=== PATIENT | female | born 1945 | race Caucasian/White ===

== ENCOUNTER → 2017-03-19 | Outpatient (CLI) | payer MEDICARE, OTHER ==
[~2017-03-19] MED LIST: AMLO5TAB2 PO; ASCO500C14 PO; ASP81TEC PO; CLD600T GT; DRON400T2 PO; EST.625T PO; ESTR0.5T PO; FURO20TA4 PO; GLUC100016 PO; GLUC500C2 PO; METO25TA2 PO; OMEG-82 PO; OMEP20TA2 PO; OMEP20TA7 PO; PNT40TEC PO; SOLI5TAB4 PO; VITA150T PO; [UNRECOGNIZED DRUG - CODE] PO
== END ==
LOC: RAD 10:50
PROVIDERS: ATTEND Family Medicine
DX: Z12.31 Encounter for screening mammogram for malignant neoplasm of breast (principal)
CPT/HCPCS: 77067

== ENCOUNTER → 2017-04-22 | Outpatient (CLI) | payer MEDICARE, OTHER ==
--- NOTE | 2017-04-22 16:01 | Diagnostic Imaging Report ---
EXAMINATION: Left breast ultrasound. INDICATION: Cluster of calcifications seen in the left breast central posterior aspect. FINDINGS: At the 1 o'clock zone 7 cm from the nipple, there is an area of slight heterogeneity within the parenchyma and with associated nonspecific shadowing. It appears to be elongated on the antiradial imaging plane and on the radial imaging plane it is thinner. The area involved measures 2.2 x 0.5 x 0.8 cm. No internal vascularity is evident. No definitive borders or mass is identified. The four-quadrants and retroareolar region of the left breast were scanned with no definite abnormality seen otherwise. IMPRESSION: 1. At the 1 o'clock zone 7 cm from the nipple, there is a poorly defined heterogenous area of the parenchyma measuring 2.2 cm in size with indeterminate features. Further evaluation with an MRI of the breast is recommended. 2. Indeterminate cluster of calcifications, new from the prior exam, is seen on mammography with pleomorphism. A stereotactic biopsy is recommended. MRI is better performed before the biopsy, however. The patient was informed of the findings and recommendations. ACR BI-RADS Category 4B: Intermediate suspicion of malignancy. Report was faxed to the office of EDISON Maciel at 3:54 p.m., by souleymane (for [employer]). Dictated by: Dictated on workstation # [id number]
--- NOTE | 2017-04-22 19:42 | Diagnostic Imaging Report ---
Left breast diagnostic mammogram with tomography. The current study was also evaluated with a Computer Aided Detection (CAD) system. INDICATION: Calcification seen in the central aspect of the left breast developing from the previous exam of 2013. FINDINGS: Group of calcifications is heterogenous with some coarse and few microcalcifications are seen. Etiology is indeterminate. They are located in the posterior depth in the central aspect of the left breast. IMPRESSION: Heterogenous cluster of calcifications in the central posterior aspect of the left breast, associated with a low suspicion of malignancy. Ultrasound evaluation is pending. ACR BI-RADS Category 0: Incomplete. (Needs additional imaging evaluation). Result letter will be mailed to the patient. Note: At least 10% of breast cancer is not imaged by mammography. Dictated by: Dictated on workstation # [id number]
== END ==
LOC: RAD 12:44
PROVIDERS: ATTEND Nurse Practitioner Family
DX: R92.8 Other abnormal and inconclusive findings on diagnostic imaging of breast (principal)
CPT/HCPCS: 76641

== ENCOUNTER → 2017-08-15 | Outpatient (CLI) | payer MEDICARE, OTHER | LOC: RAD 10:05 | PROVIDERS: ATTEND Nurse Practitioner Family | DX: M25.562 Pain in left knee (principal) ==

== ENCOUNTER → 2017-09-10 | Outpatient (CLI) | payer MEDICARE, OTHER ==
--- NOTE | 2017-09-10 15:46 | Diagnostic Imaging Report ---
PROCEDURE: CT left lower extremity without contrast. TECHNIQUE: Multiple contiguous axial images were obtained through the left lower extremity without the use of intravenous contrast. Sagittal and coronal reformations were then performed. INDICATION: Left knee pain. FINDINGS: There is no acute fracture or dislocation. There are prominent calcifications seen within the medial and lateral menisci and in the cruciate ligaments. There is also ossification or calcification seen along the posterior aspect of the quadriceps tendon insertion site. This is possibly related to a prior injury or pseudogout. There is joint space narrowing suggestive of cartilage thinning in the medial compartment of moderate degree and tricompartment osteophyte formation. There is a ptsbr-ke-gzhqxzue suprapatellar effusion. There is no significant Sneed's cyst seen. There is no suspicious osseous mass. IMPRESSION: Degenerative changes most prominent in the medial compartment are seen. There is significant calcification and ossification of the menisci and ligaments around the knee which could relate to old injury or pseudogout. Correlate clinically. Dictated by: Dictated on workstation # [id number]
== END ==
LOC: RAD 12:48
PROVIDERS: ATTEND Family Medicine
DX: M17.12 Unilateral primary osteoarthritis, left knee (principal)
CPT/HCPCS: 73700

== ENCOUNTER → 2018-05-25 | Outpatient (CLI) | payer MEDICARE, OTHER ==
--- NOTE | 2018-05-25 17:19 | Diagnostic Imaging Report ---
INDICATION: Low back pain. TIME OF EXAM: 12:43 p.m. FINDINGS: Slight right convexity lumbar scoliotic curvature is noted. There is normal lordotic curvature. There may be very slight anterolisthesis of L3 on L4. Vertebral body heights are maintained. No acute compression fracture is seen. Generalized degenerative disc disease is seen with variable disc space narrowing. Marginal osteophyte formation is present. This is most marked at L5-S1 where there is also vacuum disc phenomena. There appears to be very slight retrolisthesis of L5 on S1. Generalized facet arthropathy is noted. IMPRESSION: Lumbar spondylosis. No acute bony abnormality is detected. Dictated by: Dictated on workstation # [id number]
== END ==
LOC: RAD 11:55
PROVIDERS: ATTEND Nurse Practitioner Family
DX: M47.816 Spondylosis without myelopathy or radiculopathy, lumbar region (principal)
CPT/HCPCS: 72100

== ENCOUNTER 2018-09-10 10:29 | Emergency (ER) | payer MEDICARE, OTHER ==
[~2018-09-10] VITALS: Ht 157.5 cm; Wt 100.7 kg
--- NOTE | 2018-09-10 11:36 | ED GI ---
General Chief Complaint: Abdominal/GI Problems Stated Complaint: CONSTIPATION Nursing Triage Note: pt presents to er with complaint of constipation for over a week. pt states she has been taking stool softeners, laxatives, and a fleet enema with no results. pt states she is having bright red blood on toilet paper after straining. Sepsis Screen: No Definite Risk Source of Information: Patient Exam Limitations: No Limitations History of Present Illness Date Seen by Provider: Sep 10, 2018 Time Seen by Provider: 11:34 Initial Comments To ER with reports of constipation and no bowel movement for 8 days. She's tried wixd-ysa-mjppznj stool softeners, laxatives 3 in fleets enema with no results. She does have some bloody-appearing material on the toilet paper after straining. She has a history of diverticulitis. She called her primary care provider yesterday who called in an antibiotic. She's had 1 dose of oral antibiotic. No fevers or chills. She does have quite a bit of rectal pain. Severity/Quality: Moderate Location: Generalized Abdomen Radiation: No Radiation Associated Symptoms: No Fever/Chills; Nausea/Vomiting (nausea but no vomiting) Allergies and Home Medications Allergies Coded Allergies: Penicillins (Verified Allergy, Unknown, 07/17/15) Sulfa (Sulfonamide Antibiotics) (Verified Allergy, Unknown, 07/17/15) Home Medications Ascorbic Acid 500 Mg Capsule.sa, 500 MG PO DAILY, (Reported) Aspirin 81 Mg Tabec, 81 MG PO DAILY, (Reported) Calcium/Vitamin D 600 Mg Tab, 600 MG GT DAILY, (Reported) Estradiol 0.5 Mg Tablet, 0.5 MG PO DAILY, (Reported) Furosemide 20 Mg Tablet, 1 EACH PO PRN, (Reported) Glucosamine Sulfate 500 Mg Capsule, 500 MG PO DAILY, (Reported) Glucosamine Sulfate 2KCL 1,000 Mg Tablet, 1,000 MG PO DAILY, (Reported) Metoprolol Tartrate 25 Mg Tablet, 1 TAB PO PRN, (Reported) Multivits, Richard, Min/Folic Acid 400 Mcg Capsule, 400 MCG PO HS, (Reported) Elliott-3S/Dha/Epa/Fish Oil/D3 1 Each Capsule, 1 EACH PO DAILY, (Reported) Omeprazole 20 Mg Tablet.dr, 20 MG PO DAILY Prescribed by: BARRIE WILCOX on 07/17/15 7976 Peg/Electrolytes 4,000 Ml Soln, 240 ML PO every 10 minutes Drink 18 ounce glass every 10 minutes until bowel movement Prescribed by: LEWIS GONZALEZ on 09/10/18 1310 Solifenacin Succinate 5 Mg Tablet, 5 MG PO DAILY, (Reported) Vitamin B Complex & Vit C No.4 150 Mg Tablet, 150 MG PO DAILY, (Reported) Patient Home Medication List Home Medication List Reviewed: Yes Review of Systems Review of Systems Constitutional: see HPI EENTM: No Symptoms Reported Respiratory: No Symptoms Reported Cardiovascular: No Symptoms Reported Gastrointestinal: See HPI, Abdominal Pain, Nausea Genitourinary: No Symptoms Reported Musculoskeletal: no symptoms reported Skin: no symptoms reported Psychiatric/Neurological: No Symptoms Reported Endocrine: No Symptoms Reported Past Ofhqmwm-Vhxreu-Wverkw Hx Patient Social History Alcohol Use: Denies Use Recreational Drug Use: No Smoking Status: Never a Smoker Recent Foreign Travel: No Contact w/Someone Who Travel: No Recent Infectious Disease Expo: No Immunizations Up To Date Date of Influenza Vaccine: Jun 12, 2015 Physical Exam Vital Signs Vital Signs - First Documented 09/10/18 11:05 Temp 97.7 Pulse 74 Resp 17 B/P (MAP) 151/78 (102) Pulse Ox 97 O2 Delivery Room Air Capillary Refill : Less Than 3 Seconds Height/Weight/BMI Height: 5'2.00" Weight: 222lbs. 0.0oz. 100.719090ps; BMI Method:Stated General Appearance: WD/WN, no apparent distress HEENT: PERRL/EOMI, normal ENT inspection Respiratory: no respiratory distress, no accessory muscle use Cardiovascular: regular rate, rhythm, no murmur Gastrointestinal: normal bowel sounds, soft, tenderness Rectal: other (on KRISHAN there is a large fecal impaction. This was partially evacuated. She was intolerant of much of this. Will try lidocaine jelly then reattempt disimpaction) Extremities: normal range of motion, non-tender Neurologic/Psychiatric: alert, normal mood/affect Skin: normal color, warm/dry Progress/Results/Core Measures Results/Orders Lab Results Laboratory Tests Test 09/10/18 12:00 Range/Units White Blood Count 13.2 H 4.3-11.0 10^3/uL Red Blood Count 4.71 4.35-5.85 10^6/uL Hemoglobin 13.6 11.5-16.0 G/DL Hematocrit 39 35-52 % Mean Corpuscular Volume 83 80-99 FL Mean Corpuscular Hemoglobin 29 25-34 PG Mean Corpuscular Hemoglobin Concent 35 32-36 G/DL Red Cell Distribution Width 13.4 10.0-14.5 % Platelet Count 288 130-400 10^3/uL Mean Platelet Volume 9.5 7.4-10.4 FL Neutrophils (%) (Auto) 79 H 42-75 % Lymphocytes (%) (Auto) 14 12-44 % Monocytes (%) (Auto) 7 0-12 % Eosinophils (%) (Auto) 0 0-10 % Basophils (%) (Auto) 0 0-10 % Neutrophils # (Auto) 10.5 H 1.8-7.8 X 10^3 Lymphocytes # (Auto) 1.8 1.0-4.0 X 10^3 Monocytes # (Auto) 0.9 0.0-1.0 X 10^3 Eosinophils # (Auto) 0.0 0.0-0.3 10^3/uL Basophils # (Auto) 0.0 0.0-0.1 10^3/uL Sodium Level 136 135-145 MMOL/L Potassium Level 4.0 3.6-5.0 MMOL/L Chloride Level 102 98-107 MMOL/L Carbon Dioxide Level 20 L 21-32 MMOL/L Anion Gap 14 5-14 MMOL/L Blood Urea Nitrogen 18 7-18 MG/DL Creatinine 1.11 0.60-1.30 MG/DL Estimat Glomerular Filtration Rate 48 BUN/Creatinine Ratio 16 Glucose Level 121 H 70-105 MG/DL Calcium Level 9.8 8.5-10.1 MG/DL Corrected Calcium 9.5 8.5-10.1 MG/DL Total Bilirubin 0.7 0.1-1.0 MG/DL Aspartate Amino Transf (AST/SGOT) 31 5-34 U/L Alanine Aminotransferase (ALT/SGPT) 27 0-55 U/L Alkaline Phosphatase 74 40-136 U/L Total Protein 7.8 6.4-8.2 GM/DL Albumin 4.4 3.2-4.5 GM/DL My Orders Orders - LEWIS GONZALEZ [employer] Lidocaine 2% (Urojet) (Xylocaine Urojet) (09/10/18 11:45) Cbc With Automated Diff (09/10/18 11:32) Comprehensive Metabolic Panel (09/10/18 11:32) Ct Abdomen/Pelvis Wo (09/10/18 11:32) Medications Given in ED Current Medications Medications Dose Ordered Sig/Lori Route Start Time Stop Time Status Last Admin Dose Admin Lidocaine HCl 10 ml ONCE ONCE TOP 09/10/18 11:45 09/10/18 11:46 DC 09/10/18 12:00 10 ML Vital Signs/I&O 09/10/18 11:05 Temp 97.7 Pulse 74 Resp 17 B/P (MAP) 151/78 (102) Pulse Ox 97 O2 Delivery Room Air Blood Pressure Mean: 102 Departure Communication (Admissions) 1307-fecal impaction disimpacted as much as possible digitally. She was then given 750 mL of warm soapsuds enema. We will discharge to home with a prescription for GoLYTELY. She did end up having a very large bowel movement here in the emergency room after soapsuds enema. Impression Primary Impression: Fecal impaction Additional Impression: Constipation Qualified Codes: K59.00 - Constipation, unspecified Disposition: HOME, SELF-CARE Condition: Stable Departure-Patient Inst. Decision time for Depature: 13:08 Referrals: FAIZAN FOURNIER MD (PCP/Family) Primary Care Physician Patient Instructions: Constipation, Adult (DC) Add. Discharge Instructions: 1. Return to ER for any concerns 2. Drink one 8 ounce glass of MiraLAX mixed in water every 10 minutes until bowel movement 3. Return to ER for any concerns 4. All discharge instructions reviewed with patient and/or family. Voiced understanding. Scripts Peg/Electrolytes (Golytely Solution) 4,000 Ml Soln 240 ML PO every 10 minutes, #1 EA Drink one 8 ounce glass every 10 minutes until bowel movement Prov: LEWIS GONZALEZ [employer] 09/10/18 LEWIS GONZALEZ [employer] Sep 10, 2018 11:36
[2018-09-10] MEDS ORDERED: LIDOCAINE UROJET 2% GEL 10 ML PKG TOP ONE (11:45)
[2018-09-10 12:05] LABS: BASOPHILS % (AUTO) 0 % (0-10); EOSINOPHILS % (AUTO) 0 % (0-10); HEMATOCRIT 39 % (35-52); HEMOGLOBIN 13.6 G/DL (11.5-16.0); LYMPHOCYTES # (AUTO) 1.8 X 10^3 (1.0-4.0); LYMPHOCYTES % (AUTO) 14 % (12-44); MEAN CORPUSCULAR HEMOGLOBIN 29 PG (25-34); MEAN CORPUSCULAR HGB CONC 35 G/DL (32-36); MEAN CORPUSCULAR VOLUME 83 FL (80-99); MEAN PLATELET VOLUME 9.5 FL (7.4-10.4); MONOCYTES # (AUTO) 0.9 X 10^3 (0.0-1.0); MONOCYTES % (AUTO) 7 % (0-12); NEUTROPHILS # (AUTO) 10.5 X 10^3 (1.8-7.8); NEUTROPHILS % (AUTO) 79 % (42-75); PLATELET COUNT 288 10^3/uL (130-400); RED BLOOD COUNT 4.71 10^6/uL (4.35-5.85); RED CELL DISTRIBUTION WIDTH 13.4 % (10.0-14.5); WHITE BLOOD COUNT 13.2 10^3/uL (4.3-11.0)
[2018-09-10 12:23] LABS: ALBUMIN 4.4 GM/DL (3.2-4.5); BILIRUBIN,TOTAL 0.7 MG/DL (0.1-1.0); CALCIUM 9.8 MG/DL (8.5-10.1); CREATININE SERUM 1.11 MG/DL (0.60-1.30); TOTAL PROTEIN 7.8 GM/DL (6.4-8.2)
--- NOTE | 2018-09-10 12:31 | Diagnostic Imaging Report ---
PROCEDURE: CT abdomen and pelvis without contrast. TECHNIQUE: Multiple contiguous axial images were obtained through the abdomen and pelvis without the use of intravenous contrast. INDICATION: Abdominal pain and constipation. COMPARISON: Comparison is made with prior CT from 04/02/2015. FINDINGS: The lung bases are clear. No discrete liver mass is identified. The gallbladder is surgically absent. No biliary ductal dilatation is seen. The pancreas and spleen are unremarkable. No adrenal mass is identified. Low-density lesion in left kidney is slightly smaller than prior exam and is consistent with a cyst. No calculi or hydronephrosis is identified. The aorta is non-aneurysmal. There is a large amount of stool in the colon. In particular, there is large amount of stool in the transverse colon and splenic flexure as well as the descending colon and rectum. Small bowel is nondilated. There is no ascites. The bladder is decompressed. Bony structures are nonacute. IMPRESSION: There is a large amount of stool throughout the colon suggestive of constipation. No other significant abnormalities detected. Dictated by: Dictated on workstation # [id number]
[2018-09-10] MEDS ORDERED: CLT4KB PO ×2 (13:10→13:25)
[2018-09-10 13:43] VITALS: BP 133/88
== END 2018-09-10 13:45 | disposition home or self-care (01) ==
LOC: EDUNIT# 10:29 → ER 10:30
DX: K59.00 Constipation, unspecified (principal); K56.41 Fecal impaction; Z88.0 Allergy status to penicillin; Z88.2 Allergy status to sulfonamides; Z79.82 Long term (current) use of aspirin; Z87.19 Personal history of other diseases of the digestive system
CPT/HCPCS: 36415; 74176; 80053; 85025

== ENCOUNTER → 2018-11-11 | Outpatient (CLI) | payer MEDICARE, OTHER ==
[~2018-11-11] MED LIST changes: +CLT4KB PO
--- NOTE | 2018-11-11 14:59 | Diagnostic Imaging Report ---
INDICATION: Fall with pain to the thumb. EXAMINATION: Three views of the right hand were obtained. FINDINGS: Arthritic changes to the wrist and hand joints. No fracture or dislocation apparent. Some soft tissue calcifications, chronic. IMPRESSION: No acute injury apparent. Dictated by: Dictated on workstation # [id number]
--- NOTE | 2018-11-11 15:05 | Diagnostic Imaging Report ---
INDICATION: Injury to right thumb. AP, oblique, and lateral views of the right thumb are obtained. No fracture or acute bony abnormality is seen. There are underlying degenerative changes of the first MCP joint and first carpometacarpal joint. IMPRESSION: Degenerative changes. No acute bony abnormality. Dictated by: Dictated on workstation # [id number]
== END ==
LOC: RAD FS 14:35
PROVIDERS: ATTEND Chiropractor
DX: S69.91XA Unspecified injury of right wrist, hand and finger(s), initial encounter (principal); M19.041 Primary osteoarthritis, right hand; W19.XXXA Unspecified fall, initial encounter
CPT/HCPCS: 73130; 73140

== ENCOUNTER → 2023-07-08 | Outpatient (CLI) | payer MEDICARE, OTHER ==
[~2023-07-08] MED LIST changes: +OMEP20TA56 PO; -OMEP20TA7 PO
--- NOTE | 2023-07-08 17:11 | Diagnostic Imaging Report ---
EXAMINATION: Right knee 3 views HISTORY: Knee pain COMPARISON: 11/14/2015 FINDINGS: There is progressive moderate tricompartmental osteoarthritis. There is chondrocalcinosis of the menisci. There are soft tissue calcifications adjacent to the head of the fibula. There is no effusion. No acute fracture. IMPRESSION: 1. 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 Dictated by: Dictated on workstation # [id number]
== END ==
LOC: RAD 15:52
PROVIDERS: ATTEND Nurse Practitioner Family
DX: M17.11 Unilateral primary osteoarthritis, right knee (principal); M11.261 Other chondrocalcinosis, right knee
CPT/HCPCS: 73562